=== PATIENT | female | born 1990 | race Caucasian/White ===

== ENCOUNTER 2019-02-17 12:10 | Outpatient (CLI) | payer OTHER ==
[~2019-02-17] VITALS: Ht 167.7 cm; Wt 64.0 kg
--- NOTE | 2019-02-17 11:45 | NUR ---
Arrived to unit via ambulation with c/o hyperemesis. Accompanied by s.o. Orders received prior to pt arrival. wt obtained and to room 301. Gowned and to bed. Oriented to room, call light and surroundings. Plan of care reviewed with pt and s.o.
[2019-02-17 12:18] VITALS: BP 100/69
[2019-02-17] MEDS ORDERED: PREN-37 PO (12:19)
[2019-02-17] MEDS ORDERED: ONDANSETRON 4 MG/2 ML (SDV) Z0FRAN ONE (12:22)
[2019-02-17] MEDS ORDERED: D5 LR IV SOLUTION 1,000 ML IV ONE ×2 (12:22→12:30)
[2019-02-17] MEDS ORDERED: ONDANSETRON 4 MG/2 ML (SDV) Z0FRAN IVP ONE (12:30)
--- NOTE | 2019-02-17 12:30 | NUR ---
Ice water and crackers to bedside table.
--- NOTE | 2019-02-17 12:55 | NUR ---
Dr Garcia to see patient and review plan of care
--- NOTE | 2019-02-17 13:20 | Discharge Instructions ---
Discharge Instructions Discharge Medications New, Converted or Re-Newed RX: Other Patient Instructions Return to [facility] For: as directed Activity & Diet Activity as Tolerated: Yes Orders-Post D/C & Referrals RTC PRN and as scheduled ESTHER GOODEN MD Feb 17, 2019 13:20
--- NOTE | 2019-02-17 14:26 | History & Physical ---
History and Physical Date Seen by Provider: Feb 17, 2019 Time Seen by Provider: 13:00 This patient is a 28-year-old 1 white female seen in my clinic on this date for evaluation secondary to severe nausea vomiting with a positive test. She is found to be 6 weeks gestation. She was dehydrated and unable to tolerate any oral intake. She denied vaginal bleeding or discharge. She was sent to labor and delivery for hydration. Allergies are none Medications are B12 B6 vitamins Medical social and surgical histories are per the my H&P from my clinic. HEENT exam is normal except for the patient appearing quite fatigued and dehydrated Neck is supple no lymphadenopathy no thyromegaly Abdomen is soft nontender nondistended Extremities show no clubbing cyanosis. There is no Homans sign. Pelvic exam performed in clinic it was normal. Assessment and plan 6 week with hyperemesis gravidarum. Patient will be admitted for observation and IV hydration. If she improves fairly promptly then she'll be discharged home if not we will obtain lab work including a CBC and CMP and a UA to evaluate for other etiologies for her nausea. Allergies and Home Medications Allergies Coded Allergies: No Known Drug Allergies (Unverified , 02/17/19) Home Medications Vit/Iron Fumarate/FA 1 Each Tablet, 1 EACH PO DAILY, (Reported) Patient Home Medication List Home Medication List Reviewed: Yes ESTHER GOODEN MD Feb 17, 2019 14:26
--- NOTE | 2019-02-17 14:50 | NUR ---
Discharge instructions explained, signed and copy to patient. pt verbalized understanding of instructions and denied questions. Ambulates self off unit accompanied by s.o. to private vehicle with belongings in hand.
== END 2019-02-17 14:50 | disposition home or self-care (01) ==
LOC: WSo 12:10 → LDRP 12:10 → WSo 14:50
PROVIDERS: ATTEND Obstetrics & Gynecology
DX: O21.0 Mild hyperemesis gravidarum (principal); Z3A.01 Less than 8 weeks gestation of pregnancy
CPT/HCPCS: 96361; 96374; 99212

== ENCOUNTER 2019-09-06 17:16 | Observation (INO) | payer BC ==
[~2019-09-06] VITALS: Ht 167.7 cm; Wt 72.6 kg
--- NOTE | 2019-09-06 16:26 | NUR ---
Dr. Garcia called to give orders on patient that was coming to the floor to be evaluated.
[~2019-09-06 17:16] MED LIST: PREN-37 PO
--- NOTE | 2019-09-06 17:18 | NUR ---
AJIT VALLES V presented to unit from ED registration, accompanied by spouse, with c/o VAGINAL PAIN. AJIT VALLES V weighed, gowned, voided, and to bed. EFHM and TOCO applied, VS taken. AJIT VALLES V oriented to bed controls, call light, TV, heat, and A/C controls.
--- NOTE | 2019-09-06 17:27 | NUR ---
Dr. Garcia called to give telephone order for pain medication to be given prior to placing wren catheter.
[2019-09-06] MEDS ORDERED: BUTORPHANOL INJ 2 MG/ML (STADOL) VIAL IV ONE (17:45)
[2019-09-06 17:51] VITALS: BP 109/75
--- NOTE | 2019-09-06 18:00 | NUR ---
IV started with 20g jelco x 1 attempt, blood drawn for ordered labs.
[2019-09-06] MEDS: D5 LR IV SOLUTION 1,000 ML IV SCH (18:16)
--- NOTE | 2019-09-06 18:20 | NUR ---
Pelaez placed to dependent drainage. Pericare completed.
[2019-09-06 18:29] LABS: BASOPHILS % (AUTO) 0 % (0-10); EOSINOPHILS # (AUTO) 0.1 10^3/uL (0.0-0.3); EOSINOPHILS % (AUTO) 1 % (0-10); HEMATOCRIT 26 % (35-52); HEMOGLOBIN 8.1 G/DL (11.5-16.0); LYMPHOCYTES # (AUTO) 2.3 X 10^3 (1.0-4.0); LYMPHOCYTES % (AUTO) 23 % (12-44); MEAN CORPUSCULAR HEMOGLOBIN 25 PG (25-34); MEAN CORPUSCULAR HGB CONC 31 G/DL (32-36); MEAN CORPUSCULAR VOLUME 79 FL (80-99); MEAN PLATELET VOLUME 10.8 FL (7.4-10.4); MONOCYTES # (AUTO) 1.2 X 10^3 (0.0-1.0); MONOCYTES % (AUTO) 12 % (0-12); NEUTROPHILS # (AUTO) 6.4 X 10^3 (1.8-7.8); NEUTROPHILS % (AUTO) 64 % (42-75); PLATELET COUNT 257 10^3/uL (130-400); RED CELL DISTRIBUTION WIDTH 14.5 % (10.0-14.5)
[2019-09-06] MEDS: ceFAZolin 2 GM IV Premixed 50 ML IV SCH (18:32)
[2019-09-06 18:36] LABS: BILIRUBIN,URINE NEGATIVE (NEGATIVE); CLARITY,URINE CLEAR; COLOR,URINE YELLOW; GLUCOSE, URINE (UA) NEGATIVE (NEGATIVE); KETONES,URINE NEGATIVE (NEGATIVE); LEUKOCYTE ESTERASE ,URINE 1+ (NEGATIVE); NITRITE,URINE NEGATIVE (NEGATIVE); PROTEIN,URINE NEGATIVE (NEGATIVE)
[2019-09-06] MEDS ORDERED: OMEP20TA33 PO (18:38)
[2019-09-06 18:42] VITALS: BP 109/75
[2019-09-06 18:42] LABS: ALANINE AMINOTRANSFERASE 18 U/L (0-55); ALBUMIN 3.2 GM/DL (3.2-4.5); ALKALINE PHOSPHATASE 115 U/L (40-136); BILIRUBIN,TOTAL 0.4 MG/DL (0.1-1.0); BUN/CREATININE RATIO 12; CALCIUM 8.3 MG/DL (8.5-10.1); CARBON DIOXIDE 19 MMOL/L (21-32); CHLORIDE 105 MMOL/L (98-107); CREATININE SERUM 0.59 MG/DL (0.60-1.30); GFR ESTIMATED > 60; GLUCOSE 78 MG/DL (70-105); POTASSIUM 3.6 MMOL/L (3.6-5.0); SODIUM 135 MMOL/L (135-145); TOTAL PROTEIN 6.7 GM/DL (6.4-8.2)
[2019-09-06 18:51] LABS: BACTERIA,URINE NEGATIVE /HPF; RBC,URINE 25-50 /HPF
[2019-09-06 19:00] VITALS: BP 112/68
--- NOTE | 2019-09-06 19:16 | NUR ---
Dr. Garcia updated on patient's lab results. New orders received.
--- NOTE | 2019-09-06 19:20 | NUR ---
Report to Francisca Lee RN.
[2019-09-06 20:00] VITALS: BP 112/68
--- NOTE | 2019-09-06 21:15 | NUR ---
pt put customer relationship specialist light, states pain is increasing, pt c/o nausea. reports leaking fluid. fluid examined on pad, 4cm spot of yellow discharge noted on pad. notified. new orders received.
[2019-09-06] MEDS ORDERED: ONDANSETRON 4 MG/2 ML (SDV) Z0FRAN ONE (21:27)
[2019-09-06] MEDS: BUTORPHANOL INJ 2 MG/ML (STADOL) VIAL IV PRN (21:40)
[2019-09-06] MEDS ORDERED: ONDANSETRON 4 MG/2 ML (SDV) Z0FRAN IVP ONE (21:45)
[2019-09-07] VITALS: BP 107/71
[2019-09-07] MEDS: ceFAZolin 2 GM IV Premixed 50 ML IV SCH (02:56)
[2019-09-07] MEDS ORDERED: ONDANSETRON 4 MG/2 ML (SDV) Z0FRAN ONE (03:35)
[2019-09-07] MEDS: BUTORPHANOL INJ 2 MG/ML (STADOL) VIAL IV PRN (03:50)
--- NOTE | 2019-09-07 03:50 | NUR ---
pt c/o increase in pain and nausea. Zofran and stadol given. Pt requested to only receive half the dose of the stadol. States she didn't like how the last dose made her feel
[2019-09-07 04:00] VITALS: BP 87/53
[2019-09-07] MEDS ORDERED: ONDANSETRON 4 MG/2 ML (SDV) Z0FRAN IVP ONE ×2 (04:00→05:15)
--- NOTE | 2019-09-07 05:08 | NUR ---
pt put clinical education manager light states her nausea has not subsided. Zofran given
[2019-09-07 07:54] VITALS: BP 112/69
[2019-09-07] MEDS: D5 LR IV SOLUTION 1,000 ML IV SCH ×2 (08:01→16:03)
--- NOTE | 2019-09-07 09:35 | Diagnostic Imaging Report ---
ADDENDUM IMPRESSION: Additional imaging of the lower pelvis is performed to include the urethra given a question of periurethral abscess. There are no measurable fluid collections to suggest abscess on this noncontrast examination. INDICATION: 36 weeks . Right-sided pain. EXAMINATION: CT abdomen and pelvis without contrast dated 09/07/2019. FINDINGS: A fetus is noted throughout the abdomen and pelvis, cephalic in positioning. anatomy is not evaluated on this examination but no gross acute abnormality is appreciated. The nonopacified maternal abdominal viscera demonstrate no acute abnormality within the visualized liver. The dome of the liver was not included. The spleen is normal. The adrenal glands are normal. The pancreas is normal. The gallbladder is unremarkable. The right kidney does demonstrate hydronephrosis, moderate in nature; however, this could be within normal limits given the status. No ureteral stones are appreciated on the right. On the left, there are no ureteral stones visualized. Minimal prominence of the left renal collecting system is noted. No nephrolithiasis is seen on either side. There is a Pelaez catheter present within the urinary bladder with the balloon towards the right in the pelvis. The urinary bladder is decompressed. An additional history of possible periurethral abscess was provided; however, the urethra is not included on this examination. It is unclear if this is a true concern and clinical correlation and further imaging would be recommended as necessary. The appendix is unremarkable. No inflammation is seen about the bowel loops. There is no free air or free fluid. There are several minimally prominent appearing lymph nodes within the left inguinal region which could be within normal limits for the patient. Clinical exclusion of an infectious etiology is recommended. The osseous structures demonstrate no acute abnormality. The visualized lung bases are unremarkable other than scattered areas of atelectasis. IMPRESSION: 1. Bilateral hydronephrosis, right worse than left; however, possibly within normal limits given the status. A ureteral stone on either side is not appreciated at this time. 2. The abdominal viscera is grossly unremarkable as visualized on this noncontrast examination. 3. Slightly prominent lymph nodes within the pelvis which could be within normal for the patient, please see above description. 4. The fetus is cephalic in positioning with anatomy not evaluated on CT. If clinically indicated, sonography would provide better characterization. 5. Not mentioned in the body of the report, there is a cystic area seen within the right lower quadrant which measures 2.7 cm in greatest dimension. This abuts the region of the ascending colon just proximal to the cecum. This most likely represents an ovarian cyst as there appears to be possible ovarian tissue peripherally; however, it is difficult to ascertain on a noncontrast CT. If clinically warranted sonography could better characterize. Dictated by: Dictated on workstation # [id number]
--- NOTE | 2019-09-07 12:46 | CONSULTATION REPORT ---
DATE OF SERVICE: 09/07/2019 ATTENDING PHYSICIAN: Uri Garcia MD SUMMARY: A 29-year-old white lady who was seen yesterday for the first time, referred by Dr. Garcia because of a vaginal swelling, vaginal abscess versus infected diverticulum. Urine culture and culture of the pus from the area was sent at that time. I attempted to do cystoscopy, it was too painful for the patient. I started her on Keflex. However, she never got the prescription because she presented here with right flank pain with possible stone. We did a CT scan of the abdomen and pelvis noncontrast and down in the area of the urethra and vagina. There were no stones. There was no abnormality urethrally or periurethrally. There was no fluid or air contained spaces. The things looked more like a vaginal wall suppuration, with edema and some pus. Dr. Garcia had also send culture and sensitivity of the pus. He started her on Ancef. I explained the whole thing to the patient and what is going on and what the plan is. IMPRESSION: 1. Right flank pain. No stones. 2. Vaginal infection. PLAN: We will switch the Ancef to Rocephin to get a wider coverage. Dr. Garcia did the right thing by adding Flagyl. We will go ahead and see the patient and take one day at a time. She really feels better, catheter is in and we will leave it in at this time. We will await the results of the culture to plan for any change in the antibiotic or for selection of the p.o. antibiotic needed. Plan was fully explained to the patient. Job ID: [id number] DocumentID: [id number] Dictated Date: 09/07/2019 12:06:18 Custom Motorcycle Painter Date: 09/07/2019 12:45:23 Dictated By: RUPAL CHAIDEZ MD [facility]
--- OUTSIDE RECORDS SUMMARY | 2019-09-07 12:55 | XMS REPORT | Continuity of Care Document ---
Author Organization Unknown Address Unknown Phone Unavailable Allergies Active Description Code Type Severity Reaction Onset Reported/Identified Relationship to Patient Clinical Status Yes No Known Drug Allergies [id number] Drug Allergy Unknown N/A 02/17/2019 Medications There is no data. Problems Date Dx Coded Attending Type Code Diagnosis Diagnosed By 02/17/2019 ESTHER GOODEN MD Ot O21.0 MILD HYPEREMESIS GRAVIDARUM 02/17/2019 ESTHER GOODEN MD, Ot Z3A.01 LESS THAN 8 WEEKS GESTATION OF 02/26/2019 ESTHER GOODEN MD Ot O21.0 MILD HYPEREMESIS GRAVIDARUM 02/26/2019 ESTHER GOODEN MD, Ot Z3A.01 LESS THAN 8 WEEKS GESTATION OF Procedures There is no data. Results Test Result Range Complete blood count (CBC) with automate d white blood cell (WBC) differential - 09/06/19 18:00 Blood leukocytes automated count (number/volume) 10.0 10*3/uL 4.3-11.0 Blood erythrocytes automated count (number/volume) 3.30 10*6/uL 4.35-5.85 Venous blood hemoglobin measurement (mass/volume) 8.1 g/dL 11.5-16.0 Blood hematocrit (volume fraction) 26 % 35-52 Automated erythrocyte mean corpuscular volume 79 [ foz_us] 80-99 Automated erythrocyte mean corpuscular h emoglobin (mass per erythrocyte) 25 pg 25-34 Automated erythrocyte mean corpuscular h emoglobin concentration measurement (mass/volume) 31 g/dL 32-36 Automated erythrocyte distribution width ratio 14. 5 % 10.0- 14.5 Automated blood platelet count (count/volume) 257 10*3/uL 130-400 Automated blood platelet mean volume measurement 10.8 [foz_us] 7.4-10.4 Automated blood neutrophils/100 leukocytes 64 % 42-75 Automated blood lymphocytes/100 leukocytes 23 % 12-44 Blood monocytes/100 leukocytes 12 % 0-12 Automated blood eosinophils/100 leukocytes 1 % 0-10 Automated blood basophils/100 leukocytes 0 % 0-10 Blood neutrophils automated count (number/volume) 6.4 10*3 1.8-7.8 Blood lymphocytes automated count (number/volume) 2.3 10*3 1.0-4.0 Blood monocytes automated count (number/volume) 1. 2 10*3 0.0-1.0 Automated eosinophil count 0.1 10*3/uL 0 .0-0.3 Automated blood basophil count (count/volume) 0.0 10*3/uL 0.0-0.1 Comprehensive metabolic panel - 09/06/19 18:00 Serum or plasma sodium measurement (moles/volume) 135 mmol/L 135-145 Serum or plasma potassium measurement (moles/volume) 3.6 mmol/L 3.6-5.0 Serum or plasma chloride measurement (moles/volume) 105 mmol/L 98-107 Carbon dioxide 19 mmol/L 21-32 Serum or plasma anion gap determination (moles/volume) 11 mmol/L 5-14 Serum or plasma urea nitrogen measurement (mass/volume ) 7 mg/dL 7-18 Serum or plasma creatinine measurement (mass/volume) 0.59 mg/dL 0.60-1.30 Serum or plasma urea nitrogen/creatinine mass ratio 12 NRG Serum or plasma creatinine measurement w ith calculation of estimated glomerular filtration rate > NRG Serum or plasma glucose measurement (mass/volume) 78 mg/dL 70-105 Serum or plasma calcium measurement (mass/volume) 8.3 mg/dL 8.5-10.1 Serum or plasma total bilirubin measurement (mass/volu me) 0.4 mg/dL 0.1-1.0 Serum or plasma alkaline phosphatase windy surement (enzymatic activity/volume) 115 U/L 40-136 Serum or plasma aspartate aminotransfera se measurement (enzymatic activity/volume) 19 U/L 5-34 Serum or plasma alanine aminotransferase measurement (enzymatic activity/volume) 18 U/L 0-55 Serum or plasma protein measurement (mass/volume) 6.7 g/dL 6.4-8.2 Serum or plasma albumin measurement (mass/volume) 3.2 g/dL 3.2-4.5 CALCIUM CORRECTED 8.9 mg/dL 8.5-10.1 Complete urinalysis with reflex to cultu re - 09/06/19 18:20 Urine color determination YELLOW NRG Urine clarity determination CLEAR NR G Urine pH measurement by test strip 7.0 5-9 Specific gravity of urine by test strip 1.020 1.016-1.022 Urine protein assay by test strip, semi-quantitative NEGATIVE NEGATIVE Urine glucose detection by automated test strip NE GATIVE NEGATIVE Erythrocytes detection in urine sediment by light micr oscopy 2+ NEGATIVE Urine ketones detection by automated test strip NE GATIVE NEGATIVE Urine nitrite detection by test strip NEGATIVE NEGATIVE Urine total bilirubin detection by test strip NEGA TIVE NEGATIVE Urine urobilinogen measurement by automated test strip (mass/volume) 0.2 mg/dL < = 1.0 Urine leukocyte esterase detection by dipstick 1+ NEGATIVE Automated urine sediment erythrocyte cou nt by microscopy (number/high power field) [HPF] NRG Automated urine sediment leukocyte count by microscopy (number/high power field) [HPF] NRG Bacteria detection in urine sediment by light microsco py NEGATIVE NRG Squamous epithelial cells detection in u rine sediment by light microscopy 5-10 NRG Crystals detection in urine sediment by light microsco py NONE NRG Casts detection in urine sediment by light microscopy NONE NRG Mucus detection in urine sediment by light microscopy SMALL NRG Complete urinalysis with reflex to culture NO NRG Encounters ACCT No. Visit Date/Time Discharge Status Pt. Type Provider Facility Loc./Unit Complaint [id number] 02/17/2019 12:10:00 019 14:50:00 DIS Outpatient ESTHER GOODEN MD [facility] HYPEREMESIS [id number] 09/06/2019 17:16:[address] Outpatient ESTHER GOODEN MD [facility] LDRP VAGINAL PAIN
[2019-09-07 14:00] VITALS: BP 87/51
[2019-09-07] MEDS ORDERED: PANTOPRAZOLE 20 MG TABLET (PROTONIX) PO SCH (17:00)
[2019-09-07] MEDS ORDERED: NON-FORMULARY MEDICATION 1 EA EA (Omeprazole Magnesium (Prilosec Otc) 20 MG) PO SCH (17:00)
[2019-09-07 17:53] VITALS: BP 86/54
--- NOTE | 2019-09-07 19:17 | History & Physical ---
History and Physical Date Seen by Provider: Sep 07, 2019 Time Seen by Provider: 07:45 This patient is a 28-year-old 1 white female with an EDC of October 12, 2019. She is now 35 weeks gestation on this date. This patient was seen in my clinic yesterday with complaint of vaginal pressure pain and swelling. She was found to have a markedly edematous and swollen anterior vaginal wall with pus extruding from the urethra. Patient was referred to Dr. Chowdary who evaluated the patient and recommended continuing antibiotics with outpatient evaluation to determine the etiology of the swelling/mass. Later in the day the patient developed right flank pain consistent with a nephro/ureterolithiasis. This swati ent's history is consistent with prior kidney stones. She was admitted for observation and conservative management. She was given IV fluids and pain medication. Pelaez catheter was placed secondary to the hospital from her urethra and the mass defect in the anterior vaginal wall. She was stable through the night and Pain was controlled with IV medication. This morning the patient underwent a CT to evaluate for kidney stones that was negative. CT also demonstrated that the patient had a fairly markedly anterior vaginal wall with periurethral edema and swelling but no obvious abscess or fluid collections in that area. Patient has been maintained on IV antibiotics and reports that her pain and swelling has improved somewhat. She does report that this morning prior to the CT being performed that her flank pain resolved. This would be consistent with her likely passing her stone. Patient has been afebrile. Through the day now she is up and allow diet which she is tolerated. Plan now is to continue IV fluids and IV antibiotics and consider discharge home tomorrow hopefully after receipt of cultures of the vaginal wall abscess/cellulitis for guidance of oral antibiotics. Allergies are none Medications on admission were And vitamins Medical social and surgical histories are per the antepartum record HEENT exam is normal Neck is supple no lymphadenopathy no thyromegaly Abdomen soft nontender nondistended patient is gravid at 35 weeks gestation Extremities show no clubbing cyanosis. There is no Homans sign. Pelvic exam showed pus at the urethra with a markedly distended anterior vaginal wall consistent with what would present as a third-degree cystocele. Assessment and plan ureteral stone with ureteral colic in a patient who also has vaginal wall cellulitis and overt infection of some sort. Cultures are pending of that area. It appears that the patient is past her stone. We will continue the antibiotics this evening and consider discharge home on oral antibiotics tomorrow. Patient is a 35 weeks gestation and is no overt compromise of status at this point. NSTs have been reactive and reassuring Right ureteral stone and vaginal wall abscess Allergies and Home Medications Allergies Coded Allergies: No Known Drug Allergies (Unverified , 02/17/19) Home Medications Omeprazole Magnesium 20 Mg Tablet.dr, 20 MG PO DAILY, (Reported) Patient Home Medication List Home Medication List Reviewed: Yes ESTHER GOODEN MD Sep 07, 2019 19:17
[2019-09-07] MEDS: cefTRIAXone FOR IV USE 1,000 MG in WATER (STERILE) FOR INJECTION 10 ML IV SCH (19:39)
[2019-09-07] MEDS: metroNIDAZOLE 500MG/100ML IVPB 100 ML IV SCH (19:55)
[2019-09-07 22:28] VITALS: BP 98/57
[2019-09-08 05:06] VITALS: BP 104/56
[2019-09-08] MEDS: D5 LR IV SOLUTION 1,000 ML IV SCH (06:25)
--- NOTE | 2019-09-08 07:52 | Progress Note ---
Standard Progress Note Progress Notes/Assess & Plan Date Seen by a Provider: Sep 08, 2019 Time Seen by a Provider: 07:50 Progress/Assessment & Plan This patient is without complaint. She reports significantly decreased pain in the pelvis and vagina. She denies flank pain. She feel baby moving. She denies actually. She denies rupture membranes or bleeding. She indicates that she feels better. She denies nausea vomiting. She denies shortness of breath. She denies chest pain. She denies headache. Vital Signs Date Time Temp Pulse Resp B/P (MAP) Pulse Ox O2 Delivery O2 Flow Rate FiO2 09/08/19 05:06 36.5 86 18 104/56 (72) Room Air 09/07/19 22:28 36.8 75 18 98/57 (71) 100 Room Air 09/07/19 17:53 36.8 76 18 86/54 (65) 100 Room Air 09/07/19 14:00 37.0 78 16 87/51 (63) 98 Room Air 09/07/19 07:54 36.4 91 18 112/69 (83) 98 Room Air I & O 09/08/19 07:00 Intake Total 4770 ml Output Total 2900 ml Balance 1870 ml Vital signs are stable. Patient is afebrile. The abdomen is gravid soft nontender nondistended. Extremities show no clubbing cyanosis Pelvic exam is deferred Assessment and plan hospital day number 3 in a patient who is admitted at 35 weeks gestation for right nephrolithiasis and right ureteral colic as well as vaginal abscess/cellulitis. Patient has been maintained on antibiotics and we will continue the current antibiotics until discharge home and she'll be changed to Keflex and Flagyl. Plan is for follow-up in clinic Final Diagnosis Ureteral/nephrolithiasis and vaginal cellulitis ESTHER GOODEN MD Sep 08, 2019 07:52
[2019-09-08] MEDS ORDERED: METR500T PO (07:55)
[2019-09-08] MEDS ORDERED: CEPH-507 PO (07:55)
--- NOTE | 2019-09-08 07:57 | Discharge Inst-Surgical ---
Discharge Inst-Surgical Depart Medication/Instructions New, Converted or Re-Newed RX: Call to Patients Pharmacy Consults/Follow Up Patient Instructions: DIRECTED Orders & Referrals Follow Up Appt: Call to make follow up appt. for patient in 1 weeks and is scheduled Activity: Rest for 24 hours, than as tolerated. Please call in RX to patient pharmacy. Diet: As tolerated-Clear Liquids only if nauseated. shower or tub bathe as desired. Patient to return to the clinic as soon as possible for: Temperature greater than 101F, Severe Pain, Foul discharge from incision or vagina, Excessive Bleeding (more than a period). Activity Activity as Tolerated: Yes Diet Discharge Diet: No Restrictions ESTHER GOODEN MD Sep 08, 2019 07:57
[2019-09-08 08:00] VITALS: BP 110/60
[2019-09-08] MEDS: cefTRIAXone FOR IV USE 1,000 MG in WATER (STERILE) FOR INJECTION 10 ML IV SCH (08:03)
--- NOTE | 2019-09-08 08:15 | Progress Note - Urology ---
Progress Note-Urology Progress Notes/Assess & Plan Progress/Assessment & Plan LOOKING AND FEELING BETTER. AFEBRILE. VOIDING WELL. PLAN PER DR GOODEN Final Diagnosis VAGINAL INFECTION AND MASS RUPAL CHAIDEZ MD Sep 08, 2019 08:15
[2019-09-08] MEDS: metroNIDAZOLE 500MG/100ML IVPB 100 ML IV SCH (09:26)
--- NOTE | 2019-09-08 10:42 | NUR ---
out of WS via ambulation with s/o to home care. no s/s of distress.
== END 2019-09-08 10:42 | disposition home or self-care (01) ==
LOC: WSo 17:16 → LDRP 17:16 → WSo 17:17 → LDRP 17:17
PROVIDERS: ADMIT Obstetrics & Gynecology; ATTEND Obstetrics & Gynecology
DX: O26.833 Pregnancy related renal disease, third trimester (principal); N20.0 Calculus of kidney; O23.599 Infection of other part of genital tract in pregnancy, unspecified trimester; N73.2 Unspecified parametritis and pelvic cellulitis; Z3A.35 35 weeks gestation of pregnancy
CPT/HCPCS: 36415; 74176; 80053; 81000; 85025; 87088; 96361; 96374; 96375; 96376; 99211; G0378

== ENCOUNTER 2019-09-20 12:10 | Inpatient (IN) | payer BC ==
[~2019-09-20] VITALS: Ht 167.6 cm; Wt 76.2 kg
[~2019-09-20 12:10] MED LIST changes: +CEPH-507 PO; +METR500T PO; +OMEP20TA33 PO
--- NOTE | 2019-09-20 12:43 | NUR ---
AJIT VALLES V presented to unit via ambulation, accompanied by , for direct admit. Pt. gowned, voided, and to bed. EFHM and TOCO applied, VS taken. Pt. oriented to bed controls, call light, TV, heat, and A/C controls.
--- OUTSIDE RECORDS SUMMARY | 2019-09-20 12:45 | XMS REPORT | Continuity of Care Document ---
Author Organization Unknown Address Unknown Phone Unavailable Allergies Active Description Code Type Severity Reaction Onset Reported/Identified Relationship to Patient Clinical Status Yes No Known Drug Allergies [id number] Drug Allergy Unknown N/A 02/17/2019 Medications There is no data. 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 Visit Date/Time Discharge Status Pt. Type Provider Facility Loc./Unit Complaint [id number] 09/06/2019 16:26:00 020 10:42:00 DIS Outpatient GIACOMO GILMAN, ESTHER [facility] LDRP FLANK PAIN IN P REGJOSÉT PT [id number] 02/17/2019 12:10:00 019 14:50:00 DIS Outpatient GIACOMO GILMAN, ESTHER [place] [facility] ILIANAo RADHA
[2019-09-20 13:00] VITALS: BP 105/73
[2019-09-20] MEDS ORDERED: FAMOTIDINE 20 MG (PEPCID) TABLET PO ONE (13:15)
[2019-09-20] MEDS ORDERED: FAMOTIDINE 20 MG (PEPCID) TABLET ONE (13:29)
--- NOTE | 2019-09-20 13:30 | NUR ---
admission paperwork completed.
--- NOTE | 2019-09-20 13:37 | History & Physical ---
History and Physical Date Seen by Provider: Sep 20, 2019 Time Seen by Provider: 13:25 This patient is a 28-year-old 1 white female with an EDC of October 12, 2019 putting her now at 36-6/7 weeks' gestation. Her GBS culture done at 35 weeks gestation was negative. This patient's has been complicated now by a urethral or periurethral abscess for over 3 weeks. Cultures had grown staph aureus facilitate sensitive as well as Bacteroides. Patient has been on appropriate antibiotics and after almost 2 weeks with persistence of symptoms. Primarily copious pus from the urethra cultures were repeated and REPEAT had grown only the Bacteroides. Patient had been evaluated by urology who was unabl e to accomplish a cystoscopy secondary to patient's pain. She continued on antibiotics and seemed to be improving somewhat however S as her symptoms waxed again urology here locally recommended transfer to for evaluation. Last Friday patient was sent to high-risk OB department where she was evaluated and eventually discharged home with her condition unchanged. The plan from was to reevaluate the patient 12 weeks after she delivered. Patient continues to have increasing pain around the urethra. She was instructed to manually express the purulence from her urethra 3 times a day by the physicians which she has attempted to do but continues to have a mass palpable under the urethra and purulent drainage from the urethra. Patient is requesting definitive treatment. She is also requesting to avoid additional trauma and insults to an infected pelvis. I had a lengthy discussion with the patient and have decided on a plan which would include admission now for IV Flagyl to cover the Bacteroides present on the last culture and on at 37 weeks which is tomorrow to avoid trauma to the pelvis which would allow for immediate evaluation of the urethra. Patient specifically wishes to avoid any insult or injury additionally to the urethra and bladder and what she is artery experiencing. I have a consult in for urology potentially for a cystoscopy and ureteroscope after delivery. With the plan being that if there is a urethral diverticulum urology will manage that issue if there is no diverticulum of the urethra then the abscess can be drained transvaginally or excised transvaginally. Patient understands and accepts the risks associated with both the and for the definitive treatment of the current issue. She prefers the and agrees with that plan. Allergies are none Medications are dev vitamins Keflex and Flagyl patient has also been treated with Rocephin at [facility] social and surgical histories are per the antepartum record HEENT exam is normal patient does appear to be in discomfort particularly with ambulation Neck is supple no lymphadenopathy no thyromegaly Abdomen is gravid soft nontender nondistended Extremities show no clubbing cyanosis. There is no Homans sign Pelvic exam in clinic showed a cervix 1 cm dilated and thick Assessment and plan 36-6/7 weeks' gestation with a persistent pelvic abscess that in the vaginal wall that appears to be communicating with the urethra. Principal diagnoses of the differential diagnoses seems to be consistent with an infected urethral diverticulum. That has not been confirmed as of this date. Patient had an MRI [facility] that suggested this could be a Bartholin gland or some other periurethral gland. Patient has had multiple examinations. At with no definitive diagnosis for the etiology for this abscess site. Plan is as noted above. We will admit continue on antibiotics liver by tomorrow Evaluate urethra directly by the urologist. Treatment from that point we depend on the specific findings of the cystoscopy. 36 6/7 weeks with jacob-urethral abscess and progressive vaginal pain Allergies and Home Medications Allergies Coded Allergies: No Known Drug Allergies (Unverified , 02/17/19) Home Medications Cephalexin 500 Mg Capsule, 500 MG PO QID Prescribed by: ESTHER PEMBERTON on 09/08/19 075 Metronidazole 500 Mg Tablet, 500 MG PO BID Prescribed by: ESTHER PEMBERTON on 09/08/19 0755 Omeprazole Magnesium 20 Mg Tablet., 20 MG PO DAILY, (Reported) Patient Home Medication List Home Medication List Reviewed: Yes ESTHER GOODEN MD Sep 20, 2019 13:37
--- NOTE | 2019-09-20 14:23 | NUR ---
monitors dc'd. Reactive NST noted.
[2019-09-20 14:24] VITALS: BP 105/73
--- NOTE | 2019-09-20 15:00 | NUR ---
#20g IV to Rt.wrist x3 attempts by this RN. site patent, secured with opsite. admission labs collected from site prior to IVF's infusing. see eMar for further.
[2019-09-20] MEDS: D5 LR IV SOLUTION 1,000 ML IV SCH (15:01)
[2019-09-20] MEDS: metroNIDAZOLE 500MG/100ML IVPB 100 ML IV SCH ×2 (15:01→23:05)
[2019-09-20 15:17] LABS: MEAN PLATELET VOLUME 11.2 FL (7.4-10.4); RED CELL DISTRIBUTION WIDTH 15.3 % (10.0-14.5); WHITE BLOOD COUNT 8.9 10^3/uL (4.3-11.0)
--- NOTE | 2019-09-20 16:00 | NUR ---
c/s consent signed and placed on chart.
[2019-09-20] MEDS ORDERED: OXYC1TAB12 PO (16:14)
[2019-09-20] MEDS ORDERED: IBUP-1780 PO (16:14)
[2019-09-20] MEDS ORDERED: DOCU-143 PO (16:14)
--- NOTE | 2019-09-20 16:16 | Discharge Inst-Surgical ---
Discharge Inst-Surgical Depart Medication/Instructions New, Converted or Re-Newed RX: RX on Chart Consults/Follow Up Patient Instructions: As directed Maintain Pelaez catheter per instructions of Dr. Leong Orders & Referrals Follow Up Appt: RTC 1 week for incision check. Call to make follow up appt. for patient in 4 weeks. Return to clinic with Dr. Leong for follow-up in regard to the catheter and to the pelvic abscess per his instructions Wound Care: Remove santos, apply benzoin and steri strips. Activity Per routine post instructions. Please call in RX to patient pharmacy. Diet as tolerated Patient may shower or tub bathe as desired. Continue home meds Activity Activity as Tolerated: No Diet Discharge Diet: No Restrictions ESTHER GOODEN MD Sep 20, 2019 16:16
[2019-09-20 18:43] VITALS: BP 108/67
--- NOTE | 2019-09-20 19:31 | NUR ---
report given to MORENA Todd.
[2019-09-20] MEDS ORDERED: ACETAMINOPHEN 500 MG TAB (TYLENOL) PO PRN (19:45)
[2019-09-20] MEDS ORDERED: oxyCODONE/APAP 5/325MG (PERCOCET 5) TABLET PO ONE (19:45)
[2019-09-20 21:02] VITALS: BP 101/60
[2019-09-21] VITALS (11 sets, daily range): BP systolic 90–109; BP diastolic 52–74
[2019-09-21] MEDS ORDERED: LACTATED RINGERS 1,000 ML IV PRN ×2 (05:19)
[2019-09-21] MEDS ORDERED: FAMOTIDINE 20MG/2ML IV (PEPCID) IV ONE (05:30)
[2019-09-21] MEDS ORDERED: CITRIC ACID/SOB CIT (BICITRA) 30 ML UDC PO ONE (05:30)
[2019-09-21] MEDS ORDERED: METOCLOPRAMIDE INJ 10 MG/2 ML (REGLAN) IV ONE (05:30)
[2019-09-21] MEDS ORDERED: ceFAZolin 2 GM IV Premixed 50 ML ONE (05:57)
[2019-09-21] MEDS ORDERED: fentaNYL INJECTION 100 MCG/2 ML AMP ONE (06:40)
[2019-09-21] MEDS ORDERED: ROPIVACAINE 5MG/ML 30ML VIAL ONE (06:40)
[2019-09-21] MEDS ORDERED: OXYTOCIN PRE-MIX DRIP 1,000 ML IV ONE (06:45)
--- NOTE | 2019-09-21 07:17 | Progress Note ---
Standard Progress Note Progress Notes/Assess & Plan Date Seen by a Provider: Sep 21, 2019 Time Seen by a Provider: 07:14 Progress/Assessment & Plan Patient continues to have vaginal pain and feeling of swelling and fullness. She denies rupture membranes or bleeding. She denies contractions. Patient has been stable since admission. Laboratory Tests Test 09/20/19 15:00 Range/Units White Blood Count 8.9 4.3-11.0 10^3/uL Red Blood Count 3.42 L 4.35-5.85 10^6/uL Hemoglobin 8.0 L 11.5-16.0 G/DL Hematocrit 26 L 35-52 % Mean Corpuscular Volume 76 L 80-99 FL Mean Corpuscular Hemoglobin 23 L 25-34 PG Mean Corpuscular Hemoglobin Concent 31 L 32-36 G/DL Red Cell Distribution Width 15.3 H 10.0-14.5 % Platelet Count 262 130-400 10^3/uL Mean Platelet Volume 11.2 H 7.4-10.4 FL Vital Signs Date Time Temp Pulse Resp B/P (MAP) Pulse Ox O2 Delivery O2 Flow Rate FiO2 09/21/19 05:27 36.7 94 18 96/52 (67) 99 Room Air 09/20/19 21:02 36.7 91 18 101/60 (74) 99 Room Air 09/20/19 18:43 36.9 96 18 108/67 (81) 97 Room Air 09/20/19 14:24 100 18 105/73 09/20/19 13:00 36.6 100 18 99 Room Air 09/20/19 13:00 36.6 100 18 105/73 (84) 99 Room Air Vital signs are stable. Patient is afebrile. Patient is mildly anemic. The abdomen is gravid soft nontender nondistended Extremities show no clubbing or cyanosis. There is no Homans sign. Pelvic exam is deferred to the operating room. Assessment and plan 37 weeks gestation with persistent anterior vaginal wall/periurethral abscess with purulent drainage per the urethra. Plan is for delivery to avoid trauma or insult to the vagina and urethra evaluation of the abscess after maintaining Pelaez drainage for several days after the C- section. Urology consult is pending Surgical risk complication recovering follow-up have been discussed and reviewed with the patient in regard to the infant pending . She is ready to proceed and accepts those risks. ESTHER GOODEN MD Sep 21, 2019 07:17
[2019-09-21] MEDS ORDERED: ONDANSETRON 4 MG/2 ML (SDV) Z0FRAN ONE (07:25)
[2019-09-21] MEDS ORDERED: PHENYLEPHRINE 100 MCG/ML 10 ML (ANESTHESIA) SYR ONE (07:31)
[2019-09-21] MEDS: metroNIDAZOLE 500MG/100ML IVPB 100 ML IV SCH ×2 (07:39→22:43)
[2019-09-21] MEDS ORDERED: HYDROmorphone 2 MG/ML VIAL (DILAUDID) IV ONE (08:30)
[2019-09-21] MEDS ORDERED: ONDANSETRON 4 MG/2 ML (SDV) Z0FRAN IVP PRN ×2 (08:30→08:45)
[2019-09-21] MEDS ORDERED: OXYTOCIN PRE-MIX DRIP 500 ML IV SCH (08:43)
[2019-09-21] MEDS ORDERED: D5 LR IV SOLUTION 1,000 ML IV SCH (08:43)
[2019-09-21] MEDS ORDERED: TETANUS,DIPTH,PERTUSS P/F (BOOSTRIX) 0.5 ML VIAL IM ONE (08:45)
[2019-09-21] MEDS ORDERED: MEASLES,MUMPS,RUBELLA 1 EA INJ SC ONE (08:45)
[2019-09-21] MEDS ORDERED: KETOROLAC 30 MG/ML VIAL ONE (08:52)
[2019-09-21] MEDS ORDERED: DOCUSATE SODIUM 100 MG (COLACE) CAP PO SCH (09:00)
--- NOTE | 2019-09-21 09:01 | OPERATIVE REPORT ---
DATE OF SERVICE: 09/21/2019 PREOPERATIVE DIAGNOSES: Term at 37 weeks gestation with a nonhealing paraurethral vaginal wall abscess and breech presentation. POSTOPERATIVE DIAGNOSES: Term at 37 weeks gestation with a nonhealing paraurethral vaginal wall abscess and breech presentation. OPERATIVE PROCEDURE: Primary low transverse delivery of a viable female with Apgars of 8 and 9 at 1 and 5 minutes respectively. Weight 6 pounds 13 ounces. Cord blood pH of 7.31 and the time of 741. OPERATIVE DESCRIPTION: With the patient in supine position under satisfactory spinal analgesia, she was prepped and draped in the usual fashion for abdominal surgery. Prior to that, we placed in the Pelaez catheter. I did an examination visualizing the urethra and compressing the anterior vaginal wall that was quite distended and edematous with the submucosal abscess. It did appear that a slight amount of drainage was emanating from the right periurethral gland opening. Pelaez catheter was then placed and the patient draped for abdominal surgery. A Pfannenstiel incision was made through the skin with a scalpel. The patient had been entered in the usual manner. Bladder retractor was placed in position and a cleaned scalpel was used to make a 4 cm hysterotomy incision transversely across the lower uterine segment that was extended by blunt dissection as well. A vigorous viable female was delivered via the uterine incision by breech extraction from a new breech position. The was bulb suctioned on delivery. A nuchal cord was easily released. The umbilical cord was doubly clamped and cut and the infant passed to the pediatric nurse in attendance for delivery. Cord bloods were obtained. The placenta delivered spontaneously Rose. It was normal with 3-vessel cord. The uterus was exteriorized and wiped clean with a wet laparotomy sponge. Uterine incision closed with a running locked suture of 2-0 Vicryl. The uterus was quite atonic. A modified suture was placed using two #1 chromic sutures in a modified fashion. This compressed the uterus nicely stemming any significant blood loss from that point on. The uterus was now returned to the abdominal cavity. Blood clots and debris were removed from the abdominal cavity. Sponge and needle counts were correct. Hemostasis assured. The anterior parietoperitoneum was closed with a running suture of 2-0 Vicryl. Rectus muscles were closed without sutures well. Rectus fascia was closed with 2-0 Vicryl. Subcutaneous tissue was closed with 2-0 Vicryl and the skin was stapled. Sponge and needle counts were correct on completion of the procedure. Estimated blood loss was around 700 mL. The patient tolerated the procedure well and was transferred to the recovery room in stable condition. The infant had been taken stable to the full-term nursery under the care of the pediatric nurse. Job ID: [id number] DocumentID: [id number] Dictated Date: 09/21/2019 08:06:34 Fieldwork Coordinator Date: 09/21/2019 09:01:22 Dictated By: ESTHER GOODEN MD
[2019-09-21] MEDS: KETOROLAC 30 MG/ML VIAL IVP SCH ×3 (09:05→21:12)
--- NOTE | 2019-09-21 09:48 | NUR ---
This RN talks to Dr Garcia, asks if wants to order a repeat hgb in the morning with pt's starting hgb at 8 and a 800ml EBL from surgery. does not want a repeat hgb. gives order for iron supp daily. Pt asymptomatic at this time.
[2019-09-21] MEDS: oxyCODONE/APAP 10/325MG (PERCOCET 10) TABLET PO PRN ×3 (11:39→22:51)
[2019-09-21] MEDS ORDERED: FERROUS SULF 325 MG (IRON) TAB PO ONE (12:48)
[2019-09-21] MEDS: FERROUS SULF 325 MG (IRON) TAB PO SCH (12:56)
[2019-09-21] MEDS ORDERED: metroNIDAZOLE 500MG/100ML IVPB 100 ML IV SCH (14:00)
--- NOTE | 2019-09-21 16:01 | NUR ---
this RN talked to Dr Garcia. updated on pt status. Pt stable, urine output good at this time, pt got slightly lightheaded earlier while sitting up but vss and felt better after about 10-15 min. rn discusses plan of care with . Dr Garcia states that the wren catheter is to stay in place & that pt will go home with a leg bag. Dr Leong needs to be consulted in regaurds to the pt's urethral abscess. Continue IV Flagyl until after 422 AM dose, after 4/22 AM dose of Flagyl, IV may be DC'd. Pt will go home on oral flagyl.
[2019-09-21] MEDS: D5 LR IV SOLUTION 1,000 ML IV SCH (19:35)
[2019-09-21] MEDS: DOCUSATE SODIUM 100 MG (COLACE) CAP PO SCH (21:12)
[2019-09-22 03:08] VITALS: BP 94/59
[2019-09-22] MEDS: KETOROLAC 30 MG/ML VIAL IVP SCH (03:10)
[2019-09-22] MEDS: metroNIDAZOLE 500MG/100ML IVPB 100 ML IV SCH (07:25)
[2019-09-22] MEDS: FERROUS SULF 325 MG (IRON) TAB PO SCH (07:25)
[2019-09-22] MEDS ORDERED: FAMOTIDINE 20 MG (PEPCID) TABLET ONE (08:08)
--- NOTE | 2019-09-22 08:12 | Progress Note ---
Standard Progress Note Progress Notes/Assess & Plan Date Seen by a Provider: Sep 22, 2019 Time Seen by a Provider: 08:10 Progress/Assessment & Plan Patient continues to have vaginal pain and feeling of swelling and fullness. She denies rupture membranes or bleeding. She denies contractions. Patient has been stable since admission. Laboratory Tests Test 09/20/19 15:00 Range/Units White Blood Count 8.9 4.3-11.0 10^3/uL Red Blood Count 3.42 L 4.35-5.85 10^6/uL Hemoglobin 8.0 L 11.5-16.0 G/DL Hematocrit 26 L 35-52 % Mean Corpuscular Volume 76 L 80-99 FL Mean Corpuscular Hemoglobin 23 L 25-34 PG Mean Corpuscular Hemoglobin Concent 31 L 32-36 G/DL Red Cell Distribution Width 15.3 H 10.0-14.5 % Platelet Count 262 130-400 10^3/uL Mean Platelet Volume 11.2 H 7.4-10.4 FL Vital Signs Date Time Temp Pulse Resp B/P (MAP) Pulse Ox O2 Delivery O2 Flow Rate FiO2 09/21/19 05:27 36.7 94 18 96/52 (67) 99 Room Air 09/20/19 21:02 36.7 91 18 101/60 (74) 99 Room Air 09/20/19 18:43 36.9 96 18 108/67 (81) 97 Room Air 09/20/19 14:24 100 18 105/73 09/20/19 13:00 36.6 100 18 99 Room Air 09/20/19 13:00 36.6 100 18 105/73 (84) 99 Room Air Vital signs are stable. Patient is afebrile. Patient is mildly anemic. The abdomen is gravid soft nontender nondistended Extremities show no clubbing or cyanosis. There is no Homans sign. Pelvic exam is deferred to the operating room. Assessment and plan 37 weeks gestation with persistent anterior vaginal wall/periurethral abscess with purulent drainage per the urethra. Plan is for delivery to avoid trauma or insult to the vagina and urethra evaluation of the abscess after maintaining Pelaez drainage for several days after the C- section. Urology consult is pending Surgical risk complication recovering follow-up have been discussed and reviewed with the patient in regard to the infant pending . She is ready to proceed and accepts those risks. September 22, 2019 Patient is without complaint except for heartburn. She denies headache, denies shortness of breath, denies nausea vomiting. Vital Signs Date Time Temp Pulse Resp B/P (MAP) Pulse Ox O2 Delivery O2 Flow Rate FiO2 09/22/19 03:08 38.6 80 14 94/59 (71) 97 Room Air 09/21/19 22:46 37.0 76 14 100/63 (75) 98 Room Air 09/21/19 19:35 36.7 72 14 90/54 (66) 97 Room Air 09/21/19 17:00 36.1 70 14 101/69 (80) 98 Room Air 09/21/19 12:45 36.5 86 15 100/58 (72) 97 Room Air 09/21/19 09:05 Room Air 09/21/19 09:05 35.9 14 109/69 (82) 100 Room Air 09/21/19 08:50 36 12 97/74 (82) 100 Room Air 09/21/19 08:50 Room Air 09/21/19 08:35 35.8 11 97/69 (78) 100 Room Air 09/21/19 08:35 Room Air 09/21/19 08:20 36 12 96/61 (73) 100 Room Air 09/21/19 08:20 Room Air I & O 09/22/19 07:00 Intake Total 3350 ml Output Total 3830 ml Balance -480 ml Vital signs are stable. Patient is afebrile. Abdomen is benign. The surgical incision is clean dry and intact. Extremities show no clubbing cyanosis. There is no Homans sign. Assessment and plan postoperative day number 1 status post primary delivery at 37 weeks gestation. Patient doing well and will have routine convalescence care. We will continue her Keflex and Flagyl orally for her periurethral abscess ESTHER GOODEN MD Sep 22, 2019 08:12
[2019-09-22] MEDS: FAMOTIDINE 20 MG (PEPCID) TABLET PO SCH ×2 (08:15→20:09)
[2019-09-22] MEDS ORDERED: IBUPROFEN 800 MG (MOTRIN) TAB PO ONE ×2 (08:50→14:45)
[2019-09-22] MEDS: IBUPROFEN 800 MG (MOTRIN) TAB PO SCH ×3 (09:00→20:13)
[2019-09-22] MEDS: DOCUSATE SODIUM 100 MG (COLACE) CAP PO SCH ×2 (09:03→20:09)
--- NOTE | 2019-09-22 09:14 | Anesthesia-Regional Post-Op ---
Regional Patient Condition Mental Status: Alert, Oriented x3 Circulation: Same as Pre-Op Headache: Absent Sensation: Full Recovery Motor Block: Absent Post Op Complications Complications None Follow Up Care/Instructions Patient Instructions None needed. Anesthesia/Patient Condition Patient is doing well, no complaints, stable vital signs, no apparent adverse anesthesia problems. No complications reported per nursing. MARIAN KO CRNA Sep 22, 2019 09:14
[2019-09-22 09:15] VITALS: BP 104/70
--- NOTE | 2019-09-22 12:20 | CONSULTATION REPORT ---
DATE OF SERVICE: 09/22/2019 ATTENDING PHYSICIAN: Dr. Garcia. SUMMARY: A 29-year-old white girl known to me because of some kind of infectious process in the anterior vaginal wall, infected urethral diverticulum versus some kind of vaginal infection including Osage's gland infection. She was transferred to and was seen there. She had an MRI that was inconclusive. Patient was told it could be any of the above possibilities. They squeeze quite a bit of pus from it. Yesterday, she underwent a section, was a girl, healthy. Told Dr. Garcia yesterday to leave the Pelaez catheter in her. IMPRESSION: Vaginal infection, urethral diverticulum versus Osage's gland infection. RECOMMENDATION: We will leave the Pelaez catheter in place for few days let her go home with it. I will see her back in the office on Friday. We will plan to do a full exam again and cystoscopy which originally we were unable to do and manage accordingly. The plan was fully explained to her and her . Job ID: [id number] DocumentID: [id number] Dictated Date: 09/22/2019 11:07:00 Dentist/Owner Date: 09/22/2019 12:19:28 Dictated By: RUPAL CHAIDEZ MD MTDD
[2019-09-22] MEDS ORDERED: CITRIC ACID/SOB CIT (BICITRA) 30 ML UDC ONE (13:56)
--- NOTE | 2019-09-22 14:00 | NUR ---
pt CO still CO heartburn whenever she eats. Dr Garcia notified. Order for gabriela received.
[2019-09-22] MEDS ORDERED: CITRIC ACID/SOB CIT (BICITRA) 30 ML UDC PO ONE (14:15)
[2019-09-22 15:00] VITALS: BP 100/67
[2019-09-22] MEDS: oxyCODONE/APAP 10/325MG (PERCOCET 10) TABLET PO PRN (20:09)
--- NOTE | 2019-09-22 20:10 | NUR ---
Pt calls rn to room reports feeling like she is going to pass out from pain, eyes close, skin pale, so asked to move, this rn and maria alejandra chief learning officer pt to bed standby assist only. Pt supine in bed hob elevated slightly. vs taken and stable, see int. Pain meds amdin, reviewed schedule and the meaning of prn narcotic scheduling, pt voices understanding and reports feeling better. will cont to monitor.
[2019-09-22 20:15] VITALS: BP 100/59
[2019-09-23 02:09] VITALS: BP 103/79
[2019-09-23] MEDS: IBUPROFEN 800 MG (MOTRIN) TAB PO SCH ×2 (02:09→08:48)
--- NOTE | 2019-09-23 02:10 | NUR ---
Pt standby to bathroom, no dizziness noted, leg bag managed per rn, pt to bed, no ss distress noted, pt educated to walk today and understanding voiced per pt.
[2019-09-23] MEDS: oxyCODONE/APAP 10/325MG (PERCOCET 10) TABLET PO PRN ×2 (04:19→08:48)
--- NOTE | 2019-09-23 08:07 | Discharge Summary ---
Discharge Summary 37 week primary delivery This patient is a 29-year-old 1 white female who was admitted on September 20, 2019 due to nonhealing anterior vaginal wall/periurethral abscess. She had been on antibiotics for approximately 3 weeks at the time of admission. She had been evaluated at [facility] prior to admission here. The etiology of the abscess was unclear. Plan after admission was for IV antibiotics and management of the abscess. On September 21, 2019 patient attained 37 weeks. The presentation was breech. Patient had requested a primary due to the pelvic abscess as well. Patient was taken to the operating room for primary delivery which was performed without event. The patient and the recovered uneventfully. On September 22, 2019 patient was without complaint. She is ablating, tolerating oral intake and had good pain control. Dr. Chowdary had been counseled previously in regard to this patient's periurethral abscess. He had recommended maintaining pelvic catheter drainage for a period of time after her delivery and then reevaluate as an outpatient after discharge. Now on September 22 patient is ambulating, tolerating oral intake well and having good pain control. She is requesting discharge home. Her Pelaez catheter is maintained to a leg bag now. Principal diagnoses this hospitalization is 37 week primary delivery Secondary diagnoses are breech presentation, periurethral/anterior vaginal wall abscess, GERD Operation procedures include IV antibiotics and fluids monitoring spinal analgesia primary low transverse delivery Patient was given appropriate discharge instructions verbally and in writing and a copy those placed in chart. Discharge medications are Percocet and Motrin and Colace. Patient is continue the Keflex and Flagyl that she had previously been prescribed. Patient has follow-up with Dr. Chowdary. Clinical Quality Measures DVT/VTE Risk/Contraindication: Risk Factor Score Per Nursin RFS Level Per Nursing on Admit: 1=Low/No VTE PPX ESTHER GOODEN MD Sep 23, 2019 08:07
--- NOTE | 2019-09-23 08:08 | Progress Note ---
Standard Progress Note Progress Notes/Assess & Plan Date Seen by a Provider: Sep 23, 2019 Time Seen by a Provider: 08:07 Progress/Assessment & Plan Patient continues to have vaginal pain and feeling of swelling and fullness. She denies rupture membranes or bleeding. She denies contractions. Patient has been stable since admission. Laboratory Tests Test 09/20/19 15:00 Range/Units White Blood Count 8.9 4.3-11.0 10^3/uL Red Blood Count 3.42 L 4.35-5.85 10^6/uL Hemoglobin 8.0 L 11.5-16.0 G/DL Hematocrit 26 L 35-52 % Mean Corpuscular Volume 76 L 80-99 FL Mean Corpuscular Hemoglobin 23 L 25-34 PG Mean Corpuscular Hemoglobin Concent 31 L 32-36 G/DL Red Cell Distribution Width 15.3 H 10.0-14.5 % Platelet Count 262 130-400 10^3/uL Mean Platelet Volume 11.2 H 7.4-10.4 FL Vital Signs Date Time Temp Pulse Resp B/P (MAP) Pulse Ox O2 Delivery O2 Flow Rate FiO2 09/21/19 05:27 36.7 94 18 96/52 (67) 99 Room Air 09/20/19 21:02 36.7 91 18 101/60 (74) 99 Room Air 09/20/19 18:43 36.9 96 18 108/67 (81) 97 Room Air 09/20/19 14:24 100 18 105/73 09/20/19 13:00 36.6 100 18 99 Room Air 09/20/19 13:00 36.6 100 18 105/73 (84) 99 Room Air Vital signs are stable. Patient is afebrile. Patient is mildly anemic. The abdomen is gravid soft nontender nondistended Extremities show no clubbing or cyanosis. There is no Homans sign. Pelvic exam is deferred to the operating room. Assessment and plan 37 weeks gestation with persistent anterior vaginal wall/periurethral abscess with purulent drainage per the urethra. Plan is for delivery to avoid trauma or insult to the vagina and urethra evaluation of the abscess after maintaining Pelaez drainage for several days after the C- section. Urology consult is pending Surgical risk complication recovering follow-up have been discussed and reviewed with the patient in regard to the infant pending . She is ready to proceed and accepts those risks. September 22, 2019 Patient is without complaint except for heartburn. She denies headache, denies shortness of breath, denies nausea vomiting. Vital Signs Date Time Temp Pulse Resp B/P (MAP) Pulse Ox O2 Delivery O2 Flow Rate FiO2 09/22/19 03:08 38.6 80 14 94/59 (71) 97 Room Air 09/21/19 22:46 37.0 76 14 100/63 (75) 98 Room Air 09/21/19 19:35 36.7 72 14 90/54 (66) 97 Room Air 09/21/19 17:00 36.1 70 14 101/69 (80) 98 Room Air 09/21/19 12:45 36.5 86 15 100/58 (72) 97 Room Air 09/21/19 09:05 Room Air 09/21/19 09:05 35.9 14 109/69 (82) 100 Room Air 09/21/19 08:50 36 12 97/74 (82) 100 Room Air 09/21/19 08:50 Room Air 09/21/19 08:35 35.8 11 97/69 (78) 100 Room Air 09/21/19 08:35 Room Air 09/21/19 08:20 36 12 96/61 (73) 100 Room Air 09/21/19 08:20 Room Air I & O 09/22/19 07:00 Intake Total 3350 ml Output Total 3830 ml Balance -480 ml Vital signs are stable. Patient is afebrile. Abdomen is benign. The surgical incision is clean dry and intact. Extremities show no clubbing cyanosis. There is no Homans sign. Assessment and plan postoperative day number 1 status post primary delivery at 37 weeks gestation. Patient doing well and will have routine convalescence care. We will continue her Keflex and Flagyl orally for her periurethral abscess October 23, 2019 See my discharge summary for this date Final Diagnosis 37 week primary delivery ESTHER GOODEN MD Sep 23, 2019 08:08
[2019-09-23] MEDS: FAMOTIDINE 20 MG (PEPCID) TABLET PO SCH (08:47)
[2019-09-23] MEDS: FERROUS SULF 325 MG (IRON) TAB PO SCH (08:47)
[2019-09-23] MEDS: DOCUSATE SODIUM 100 MG (COLACE) CAP PO SCH (08:48)
[2019-09-23 08:50] VITALS: BP 111/76
[2019-09-26] MEDS ORDERED: IBUPROFEN 800 MG (MOTRIN) TAB PO SCH ×2 (08:45→12:00)
== END 2019-09-23 12:45 | disposition home or self-care (01) | DRG 788 ==
LOC: LDRP 12:10
PROVIDERS: ADMIT Obstetrics & Gynecology; ATTEND Obstetrics & Gynecology
PROC: 10D00Z1 Extraction of Products of Conception, Low, Open Approach (ICD-10-PCS; principal; 2019-09-21 07:15)
DX: O23.23 Infections of urethra in pregnancy, third trimester (principal); O23.593 Infection of other part of genital tract in pregnancy, third trimester; O64.1XX0 Obstructed labor due to breech presentation, not applicable or unspecified; O69.81X0 Labor and delivery complicated by cord around neck, without compression, not applicable or unspecified; O99.62 Diseases of the digestive system complicating childbirth; K21.9 Gastro-esophageal reflux disease without esophagitis; Z37.0 Single live birth; Z3A.37 37 weeks gestation of pregnancy
CPT/HCPCS: 36415; 85027; 86850; 86900; 86901; 87081; 88307; 94664